=== PATIENT | female | born 1995 | race Caucasian/White ===

== ENCOUNTER 2023-12-12 09:13 | Emergency (ER) | payer BC ==
--- NOTE | 2023-12-12 11:18 | ED Physician Documentation ---
PD HPI SKIN - Stated complaint Stated Complaint: right arm inflammation - Chief complaint Chief Complaint: Wound - History obtained from History obtained from: Patient - Additional information Additional information: 28-year-old female presents emergency department for right arm swelling and pain. Patient said that she had staph infection of her left arm in October she says that she goes to the gym every day and so she is worried that maybe she is getting some sort of staph infection from the gym. Couple days ago she noticed right palmar aspect wrist itching with erythema she describes that it looked like a bug bite which is exactly what she experienced on her left arm in October. Throughout the day she noticed itching and streaking getting worse went to the walk-in clinic they started her on doxycycline unfortunately she has not taken any of the antibioticsAnd she is now worried that the streaking is getting worse and she was told from the urgent care to come back into the emergency department if streaking got worse. The streaking is slightly raised right along a vein. She describes as painful and itchy. No fevers or chills no bodyaches no nausea vomiting diarrhea. PD PAST MEDICAL HISTORY - Past Medical History Past Medical History: No - Past Surgical History Past Surgical History: Yes HEENT: Tonsil/Adenoidectomy - Present Medications Home Medications: Ambulatory Orders Medication Instructions Recorded Confirmed Non Formulary 1 each PO QD 12/12/23 12/12/23 ONDANSETRON ODT Prepack 2 [ZOFRAN 4 mg TL Q6H PRN #15 tablet 12/12/23 ODT Prepack 2] cephALEXin [Keflex] 500 mg PO Q6H 7 Days #28 cap 12/12/23 - Allergies Allergies/Adverse Reactions: Allergies Allergy/AdvReac Type Severity Reaction Status Date / Time No Known Drug Allergies Allergy Verified 12/12/23 09:28 - Social History Does the pt smoke?: No Smoking Status: Never smoker Does the pt drink ETOH?: Yes Does the pt have substance abuse?: No PD ED PE NORMAL - Vitals Vital signs reviewed: Yes - General General: Alert and oriented X 3, No acute distress, Well developed/nourished - Cardiac Cardiac: RRR, No gallop, Strong equal pulses - Respiratory Respiratory: No respiratory distress - Derm Derm: Other (Erythema and swelling to the palmar aspect of right wrist. Mild streaking going up right arm raised, stops about 1 inch below the bend of the elbow the red line streaking is not consistent appears to be somewhat blotchy.) - Extremities Extremities: No deformity - Psych Psych: Normal mood Results - Vitals Vitals: Vital Signs - 24 hr 12/12/23 12/12/23 09:23 11:28 Temperature 36.4 C L Heart Rate 68 70 Respiratory 16 15 Rate Blood Pressure 129/81 H 124/78 O2 Saturation 100 98 Oxygen O2 Source Room air PD Medical Decision Making - ED course ED course: 28-year-old female here with concerns of right arm swelling and streaking. Patient was seen at walk-in clinic started on doxycycline but has not taken any antibiotics. Patient said that she is worried because the infection appears to be going up her arm but she said actually throughout the day the streaking has gone down. The streaking stops about an inch or 2 just below the bend of the elbow and is along the vein of her palmar side of her arm/wrist. She has had no fevers or chills make me less concerned or worried about sepsis. Because the patient has not started the antibiotics she was informed we cannot fail her on outpatient antibiotic therapy as she has not started the antibiotics yet. She was offered a one-time dose of IV ceftriaxone but was informed that it is most important that she is taking the oral antibiotics to get on top of what ever is going on. She ultimately declined to the dose of IV antibiotics here in the ER she said that she is starting the doxycycline as it is out of her truck right now and was also offered to broaden her antibiotic coverage to Keflex as well. Prescription was sent to her preferred pharmacy of Keflex and Zofran if she starts to develop any nausea vomiting with antibiotics that she says that she does have a sensitive stomach to antibiotics in the past. She did not want to start Keflex here in the ER and said that she would do this at home if desired and understands strict return precautions. Departure - Departure Disposition: 01 Home, Self Care Clinical Impression: Lymphangitis Condition: Good Instructions: ED Lymphangitis Prescriptions: cephALEXin [Keflex] 500 mg PO Q6H 7 Days #28 cap ONDANSETRON ODT Prepack 2 [ZOFRAN ODT Prepack 2] 4 mg TL Q6H PRN #15 tablet PRN Reason: Nausea / Vomiting Comments: Thank you for trusting us with your care as we discussed it is important that you start taking the doxycycline twice a day for the duration that it was prescribed for. I have also sent a prescription of Zofran to your pharmacy if you feel any nausea or vomiting with the doxycycline. Follow-up with your primary care provider or warehouse freight handler if you are having a hard time figure out what is going on with this rash. As we discussed it is hard to tell if this is lymphangitis versus possible fungal infection but for now we will treat this as lymphangitis. Please come back to the emergency department for starting develop any fevers or chills nausea vomiting body aches, keep your arm elevated at rest above your heart to help with any sort of swelling. Wishing you a speedy recovery. Forms: PCP List Discharge Date/Time: 12/12/23 11:48
[2023-12-12 11:47] VITALS: BP 124/78; O2SAT 98
== END 2023-12-12 11:48 | disposition home or self-care (01) ==
LOC: ED 09:13
DX: I89.1 Lymphangitis (principal)
CPT/HCPCS: 99282; 99283